=== PATIENT | female | born 1960 | race Caucasian/White ===

== ENCOUNTER 2022-06-21 11:29 | Emergency (ER) | payer BC ==
[~2022-06-21] VITALS: Ht 180.3 cm; Wt 70.3 kg
[2022-06-21 11:33] VITALS: BP_SYST 131
[2022-06-21 14:50] VITALS: BP_SYST 131
== END 2022-06-21 14:48 | disposition home or self-care (01) ==
LOC: SED 11:29
DX: F41.9 Anxiety disorder, unspecified (principal); Z79.899 Other long term (current) drug therapy
CPT/HCPCS: 99282